=== PATIENT | male | born 1965 | race Caucasian/White ===

== ENCOUNTER → 2018-07-13 14:45 | Outpatient (CLI) | payer MEDICARE, MEDICAID, SELFPAY ==
--- NOTE | 2018-07-13 14:46 | CA_ITS ---
PROCEDURE: 2-D M-mode and color Doppler study INDICATIONS FOR THE TEST: Chest pain COPDX Heart Murmur Tobacco SmokingX Palpitations Fatigue Syncope Edema HypertensionXDiabetes MellitusX Rheumatic Fever SOB AUGUSTIN Obesity HyperlipidemiaX Family History HD Additional History CM,CAD PATIENT INFORMATION HEIGHT: 70 WEIGHT:148 GENDER: Male B/P:143/85 2-D/M-MODE INTERPRETATION: 2-D MEASUREMENTS OBSERVED VALUES IN CMS Right Ventricular Dimension (RVDd) 2.4 Interventricular Septum (Thickness)(IVsd) .8 Left Ventricular Internal Dimensions(LVIDd) 5.4 Left Ventricular Posterior Wall (Thickness)(LVPWd) 1.0 Aortic Root 3.3 Aortic Cusp Separation 1.9 Left Atrial Dimensions (LAD) 2.5 2D 1. Left atrium is mildly enlarged, left ventricle is normal size, left ventricle wall thickness is upper limit of normal, visually estimated ejection fraction 50% with no regional wall motion abnormality. 2. The right atrium and right ventricle are relatively normal size and function. 3. The aortic valve is minimally thickened and fibrosed. 4. The mitral and tricuspid valvular grossly normal. 5. The pulmonic valve is poorly visualized. 6. No significant pericardial effusion noted. DOPPLER INTERROGATION: Doppler interrogation of the aortic, mitral and tricuspid valvular presence of mild mitral and tricuspid regurgitation, tricuspid regurgitation jet velocity is inadequate for calculation of the right ventricular systolic pressure, grade 1 diastolic dysfunction seen without tissue Doppler evidence of raised left atrial pressure. CONCLUSION: 1. Mildly enlarged left atrium, normal left ventricular size, visually estimated ejection fraction 50% with no regional wall motion abnormality, grade 1 diastolic dysfunction seen without tissue Doppler evidence of raised left atrial pressure. 2. Mild mitral and tricuspid regurgitation 3. No significant pericardial effusion noted.
== END ==
PROVIDERS: PCP Internal Medicine Adolescent Medicine; Visit Provider Internal Medicine
DX: I25.10 Atherosclerotic heart disease of native coronary artery without angina pectoris (principal)
CPT/HCPCS: 93306

== ENCOUNTER → 2019-02-26 07:30 | Outpatient (CLI) | payer MEDICARE, MEDICAID, SELFPAY ==
--- NOTE | 2019-02-26 07:33 | CT_ITS ---
CT lung screening EXAM: CT LUNG LOW DOSE WO CONTRAST HISTORY: 40 pack-year smoking history, asymptomatic for lung cancer ITS.REASON: CURRENT TOBACCO USE ORDERING PHYSICIAN: Aaron Elizabeth MD PATIENT AGE: 53 years COMPARISON: None TECHNIQUE: The exam was performed on a GE Light Speed [address] scanner using 2.90 mGy CTDI. A low dose helical CT CHEST was performed on a multi-detector scanner. All CT scans at the facility use one or more dose reduction, viz: automated exposure control, ma/kV adjustment per patient size (including targeted exams where dose is matched to indication, i.e. head), or iterative reconstruction technique. The LDCT was performed in a facility that meets the criteria for the screening program. Data regarding this exam was submitted to ACR which is an approved registry. The order for this exam indicates that it came as a result of a lung cancer screening counseling shard decision-making visit that included all the elements required of such a visit including smoking cessation. The radiologist interpreting this exam meets the CMS criteria for the LDCT lung cancer screening program. The exam is reported using the Lung-RADS classification scale and reported to the ACR registry. NOTE: This study was performed for the specific purposes of lung cancer screening and is not an alternative to diagnostic chest CT. RADIATION DOSE: CTDI vol(CT dose Index-volume) = 2.90mG DLP (Dose Length Product) = 103.42 mGcm FINDINGS: Coronary artery calcifications/stent noted. Evidence of old granulomatous disease. Calcified granuloma right middle lobe IMPRESSION: 1. Lung RADS Category: 2, benign 2. Other findings: No other pertinent findings evident RECOMMENDATIONS: 12 month LDCT follow-up
== END ==
PROVIDERS: PCP Internal Medicine Adolescent Medicine; Visit Provider Internal Medicine Adolescent Medicine
DX: Z12.2 Encounter for screening for malignant neoplasm of respiratory organs (principal); Z87.891 Personal history of nicotine dependence

== ENCOUNTER → 2019-09-17 12:49 | Outpatient (CLI) | payer MEDICARE, MEDICAID, SELFPAY ==
--- NOTE | 2019-09-17 12:54 | MR_ITS ---
PROCEDURE: MR LUMBAR SPINE WO CON CLINICAL INDICATION: ACUTE RT SIDED LBP COMPARISON: [facility] MRI-BRAIN W/WO from 04/07/2016 TECHNIQUE: Standard multiplanar multiecho sequences are performed without contrast. 3-D MIP and myelographic images are also rendered and reviewed FINDINGS: There is no acute fracture. There is mild dextroscoliosis apex at L 3. There is 1-2 millimeters anterior subluxation of L4 on L5 and 2 millimeters anterior subluxation L5 on S1. Desiccation of all lumbar intervertebral discs is noted. There is particular loss of L2-3 disc space height with associated discogenic endplate disease. New malignant bone marrow signal is apparent. At L1-2 there is disc bulge eccentric to the right of midline and there is mild bilateral ligamentum flavum and facet hypertrophy. There is right foraminal stenosis and impingement of the right L1 nerve root sleeve should be considered clinically. At L2-3 there is disc osteophyte osteophyte complex with ligamentum flavum and facet hypertrophy with bilateral neural foraminal stenoses left greater than right and central canal stenosis. At L3-4 there is broad-based disc bulge with a left central-paracentral disc herniation with inferior migration. This causes extradural mass effect on the thecal sac with central spinal canal stenosis. There is associated ligamentum flavum and hypertrophic facet disease with bilateral foraminal stenoses left greater than right. At L4-5 there is broad-based disc bulge with a right central disc herniation with bilateral hypertrophic facet disease. Fluid is seen within the facet joints left greater than right. There is mild bilateral foraminal stenosis but no central canal stenosis. At L5-S1 there is broad-based disc bulge which is eccentric to the right neural foramen. Hypertrophic facet disease is seen bilaterally. There is foraminal stenosis. Possibility of impingement of the right L5 nerve root sleeve would have to be considered. IMPRESSION: Multilevel degenerative disc and facet disease with greatest neural impingement possibly right foraminal stenosis L1-2 and left foraminal stenosis L2-3 Dictated by: Richard Hernandez 09/17/2019 14:22 Electronically signed by Richard Hernandez in [place] 09/17/2019 14:22
== END ==
PROVIDERS: PCP Internal Medicine Adolescent Medicine; Visit Provider Internal Medicine Adolescent Medicine
DX: M54.41 Lumbago with sciatica, right side (principal)
CPT/HCPCS: 72148; 76376

== ENCOUNTER 2020-01-07 13:08 | Emergency (ER) | payer MEDICARE, MEDICAID, SELFPAY ==
[2020-01-07 13:23] VITALS: BP 101/77; PULSE 64; RESP 16; TEMP 36.6; O2SAT 99
--- NOTE | 2020-01-07 13:46 | HMH.EDUTC ---
[facility] [place] Clinical Impression: Infected skin tear Disposition: Home, Self-Care Condition on Discharge: Good Instructions: Minor Wounds (Alternative Therapy), DI for Abrasion, DI for Wound Infection, Cephalexin, Skin Wound Additional Instructions: Watch area for worsening of signs of infection and follow up immediately if any red streaks etc *Keep area clean and dry *Take medication as prescribed *FOllow up with family doctor if no improvement or any worsening of symptoms *Do not put rings back on until wounds healed, swelling decreased and no further signs of infection Wounds like this can take a little bit to heal Straight to ER if any life threatening symptoms Prescriptions: cephALEXin [Keflex 500mg Cap] 500 mg PO Q6H 7 Days #28 cap Transmission Status: Received by [id number] Referrals: Aaron Elizabeth MD [Primary Care Provider] - As needed Time of Disposition: 13:59 Medical Decision Making - Ravi Inquiry Pt receiving controlled substance: No Ravi was queried for this patient: No Vital Signs: 01/07/20 13:23 Temperature 97.8 F Temperature Source Oral Pulse Rate [Right Brachial] 64 Respiratory Rate 16 Blood Pressure [Right Arm] 101/77 L Blood Pressure Mean [Right Arm] 85 Blood Pressure Source [Right Arm] Automatic Cuff Blood Pressure Position [Right Arm] Sitting 02 Sat by Pulse Oximetry 99 Oxygen Delivery Method Room Air Medical Decision Narrative: wound area cleaned well no active bleeding at this time and soft bandage placed patient educated to keep wound area clean and dry and follow up with family doctor if no improvement redness noted an wound area appeared like it was infected Patient tolerated well Patient ring on right ring finger had to be removed with ring cutter patient agreed fingers swollen and ring tight on finger [facility] [place] - General Stated complaint: AO [id number] Right hand injury Time Seen by Provider: 01/07/20 13:46 Mode of Arrival: Ambulatory Source of Information: Patient Limitations: No Limitations Description of Symptoms (Recalled from Triage Doc. by RN): Pt fell and has skin tear on top of his right hand. injured it on tuesday HEENT Symptoms (Recalled from RN notes): No Resp Symptoms (Recalled from RN notes): No Skin Symptoms (Recalled from RN notes): Yes (skin tear to the right hand) MS Symptoms (Recalled from RN notes): No Functional Status (Recalled from RN notes): na - History of Present Illness Provider Complaint: Patient state that he bumped his hand on Tuesday and caused large skin tear to top of his hand States that ever since he has had some redness and swelling along with drainage from the hand States that earlier it started bleeding and oozing so he came in to have it checked State that he has been cleaning it and applying neosporin but when he takes the bandage off the skin slips and it hurts and causes bleeding to start again - Related Data Home Medications Medication Instructions Recorded Confirmed insulin glargine 100 unit/mL (3 25 unit SUB-Q QHS ml 01/02/18 01/07/20 mL) subcutaneous pen levothyroxine 175 mcg tablet 175 mcg PO DAILY tab 01/02/18 01/07/20 lisinopril 5 mg tablet 5 mg PO DAILY tab 01/02/18 01/07/20 lovastatin 20 mg tablet 20 mg PO QHS 01/02/18 01/07/20 metformin 500 mg tablet 500 mg PO BID 01/02/18 01/07/20 Insulin Regular, Human [Novolin R] 20 - 25 units SQ HS 03/21/18 01/07/20 aspirin 81 mg tablet,delayed 81 mg PO DAILY 04/24/18 01/07/20 release tramadol 50 mg tablet 50 mg PO QID tab 07/10/18 01/07/20 Ralph [Ralph, Esme] 1 each MISCELLANEOUS DIRECTED 01/07/20 01/07/20 Previous Rx's Medication Instructions Recorded cephALEXin [Keflex 500mg Cap] 500 mg PO Q6H 7 Days #28 cap 01/07/20 Allergies Allergy/AdvReac Type Severity Reaction Status Date / Time No Known Allergies Allergy Verified 01/07/20 13:28 - Worker's Comp Is this a Worker's Comp case?: No [facility] History - Hepatiti
[2020-01-07 14:22] VITALS: BP 101/77; PULSE 64; RESP 16; TEMP 36.6; O2SAT 98
== END 2020-01-07 14:23 | disposition home or self-care (01) ==
PROVIDERS: Emergency Provider Nurse Practitioner; PCP Internal Medicine Adolescent Medicine
DX: L03.113 Cellulitis of right upper limb (principal); I10 Essential (primary) hypertension; I25.10 Atherosclerotic heart disease of native coronary artery without angina pectoris; E03.9 Hypothyroidism, unspecified; E78.5 Hyperlipidemia, unspecified; F17.210 Nicotine dependence, cigarettes, uncomplicated; E11.9 Type 2 diabetes mellitus without complications; Z79.4 Long term (current) use of insulin; Z79.84 Long term (current) use of oral hypoglycemic drugs; Z79.899 Other long term (current) drug therapy
CPT/HCPCS: G0463; 99201

== ENCOUNTER → 2020-01-28 07:59 | Outpatient (CLI) | payer MEDICARE, MEDICAID, SELFPAY ==
[2020-01-28 09:45] LABS: Coronavirus 19 IgG Antibody Negative (Negative); Coronavirus 19 IgM Antibody Negative (Negative)
== END ==
PROVIDERS: Visit Provider Surgery
DX: Z01.818 Encounter for other preprocedural examination (principal); Z12.11 Encounter for screening for malignant neoplasm of colon; Z86.010 Personal history of colon polyps
CPT/HCPCS: 36415; 86328

== ENCOUNTER 2020-01-29 06:05 | Day surgery (SDC) | payer MEDICARE, MEDICAID, SELFPAY ==
--- NOTE | 2020-01-25 15:01 | SUR.PREOP ---
01/25/2020--PHONE CALL MADE TO PATIENT. PATIENT UNDERSTANDS THAT LAB WORK AND COVID TESTING NEEDS TO BE COMPLETED BEFORE 12PM. PATIENT UNDERSTANDS IF LAB WORK AND COVID-19 TESTS ARE NOT COMPLETED BY 12PM ON THAT DATE, THE SURGERY SCHEDULED WILL BE CANCELLED AND RESCHEDULED FOR ANOTHER TIME.
[2020-01-28 14:56] VITALS: BMI 20.2
[2020-01-29] VITALS (7 sets, daily range): BP systolic 106–142; BP diastolic 68–93; PULSE 59–75; RESP 18; TEMP 36.1–36.2; O2SAT 94–99
[2020-01-29 06:40] LABS: POC Glucose,Bedside 268 (70-110)
--- NOTE | 2020-01-29 06:55 | SUR.PREOP ---
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 NO NEW ORDERS GIVEN
--- NOTE | 2020-01-29 07:14 | HMH.ANESCL ---
[facility] Anesthesia Checklist - Structural Data Admitted From: Home Planned Operative Procedure/s: colonoscopy Consent for Planned Operative Procedure(s) Verified: Yes - Additional verifications Anesthesia Reactions: No Hx Blood Transfusions: No Blood Transfusion Reaction: No - Airway Assessment C-Spine Mobility Assessed: Yes TMJ Mobility Assessed: Yes Dentition: Poor Dentition - Neurological Assessment Level of Consciousness: Awake, Alert, Appropriate - Anesthesia Plan Anesthesia Risk discussed: Yes ASA Class: II Anesthesia Type: MAC [facility] History I have reviewed the patient's past medical history: Yes Medical History: Reports:: Cancer (thyroid cancer), Coronary Artery Disease, Diabetes Mellitus Type 2, Hyperlipidemia, Hypertension Denies:: Diabetes Mellitus Type 1, Internal Pacemaker, Lung Disease, MRSA, Seizures *Have you ever received a pneumonia vaccine?: Yes *Have you received a flu vaccine this season?: Yes Other Medical History: Reports: Arthritis, Hypothyroidism, Other. Denies: Blood Transfusion Reaction Anesthesia experience/problems:: none Other Surgeries: Yes: Cardiac Catheterization, Colonoscopy, Coronary Stent, Hernia Repair, Thyroidectomy, Other. No: Pacemaker Amputation: No Fractures: No - *Social History Educational Level: Attended High School Smoking Status: Current every day smoker Tobacco Type: cigarettes # Packs/Day (cigarettes): 2 Alcohol Intake: never Alcohol Intake Frequency:: other Substance Use Type: denies use *Occupational Status:: retired, disabled Housing: apartment Household Members: spouse *Travel in the last 8 weeks: None Family Hx:: Cancer, Diabetes, Heart Attack, Hyperlipidemia, Hypertension, Thyroid Disorder
--- NOTE | 2020-01-29 08:15 | HMH.SCOPE ---
- Procedure: Date: 01/29/20 Procedure Performed:: Total colonoscopy to ileocecal valve with polypectomy by cold snare Indications:: Patient presents for follow-up colonoscopy. His primary care provider is Dr. Aaron Elizabeth. He is somewhat of a poor historian with multiple medical comorbidities. I had performed initial screening colonoscopy on 03/21/2018. He had extremely poor preparation and only flexible sigmoidoscopy was able to be performed. He underwent additional bowel preparation and colonoscopy was performed the following day at which point the patient presented for his procedure drinking coffee. Once again, despite 2 days of bowel prep he had poor preparation but did have numerous polyps removed including 7 tubular adenomas. Due to the suboptimal bowel prep and numerous polyps I had planned for follow-up colonoscopy in 6 months which was attempted on 10/24/2018. Once again he had very poor preparation and only sigmoidoscopy was able to be performed. He underwent additional bowel prep and colonoscopy was performed on 10/25/2018 which once again revealed poor prep but colonoscopy was able to be completed with at least one tubular adenoma. Was made for follow-up colonoscopy in 1 year with aggressive bowel preparation. Performing Provider:: Rashaad Sprague MD Referring Provider:: Aaron Elizabeth MD Sedation:: Propofol Procedure:: Patient was taken to endoscopy procedure room. He was positioned in lateral decubitus position. Adequate intravenous sedation was achieved. Variable stiffness Olympus colonoscope was inserted via the anus and advanced to the cecum without appreciable difficulty. Ileocecal valve and appendiceal orifice were clearly identified. However, he had poor colonic preparation with a large amount of particulate liquid stool filling the colon. Aggressive irrigation kneeing and thorough suctioning was performed which resulted in fair visualization. The colonoscope was able to be advanced briefly into the terminal ileum which appeared grossly normal. Colonoscope was withdrawn through the colon with careful surveillance as much as could be performed using aggressive irrigation and suctioning. In the distal transverse colon there appeared to be possible subtle early polyp which was removed with cold snare. In the distal rectum there were a couple of polyps, possibly hyperplastic, removed with cold cutting snare. Retroflexion revealed nonpathologic internal hemorrhoids. Colonoscope was withdrawn. Findings:: Poor colonic preparation Recommendations:: Likely repeat colonoscopy 2 years given history of adenomatous polyps and repeated poor colonic preparation Complications:: None immediately apparent Estimated blood obtained (mL): 2
== END 2020-01-29 08:50 | disposition home or self-care (01) ==
PROVIDERS: PCP Internal Medicine Adolescent Medicine; Visit Provider Surgery
PROC: 0DJD8ZZ Inspection of Lower Intestinal Tract, Via Natural or Artificial Opening Endoscopic (ICD-10-PCS; principal; 2020-01-29 07:30)
DX: Z12.11 Encounter for screening for malignant neoplasm of colon (principal); K63.5 Polyp of colon; Z86.010 Personal history of colon polyps; Z79.4 Long term (current) use of insulin; Z79.899 Other long term (current) drug therapy; E11.9 Type 2 diabetes mellitus without complications; Z85.9 Personal history of malignant neoplasm, unspecified; Z72.0 Tobacco use
CPT/HCPCS: 45385; 82962; 88305

== ENCOUNTER 2020-06-03 08:30 | Outpatient (RCR) | payer MEDICARE, SELFPAY ==
--- NOTE | 2020-05-28 10:22 | HMH.PTOPEV ---
PT Outpatient Evaluation Rehab PT Outpatient Evaluation Start: 05/28/20 08:53 Freq: Status: Active Protocol: Document 05/28/20 08:53 IMANGORAN (Rec: 05/28/20 10:22 RAVI [id number]) Electronically Signed By Efraín Robin, PT 05/28/20 08:53 Outpatient Therapy Subjective History Subjective History This is the inital evaluation for Maximino Mcclain, a 55 y/o male referred to PT for B LE weakness. Pt. reported that he feels weak and that he would like to get the strength back in his legs. Pt . lives at home with his . Pt. also reported that he has some dizziness and lightheadedness at times, mainly after standing up. The pt. also reported that he has a couple falls in the last 6 months and can only walk or stand for 3-4 minutes. Pt reports long hx of diabetes, and c/o pinched nerves in back that has caused neuropathy in BLE. Eval performed by SHAUN Webb Chief Complaint Pain,Gives out/Unstable, Weakness Symptom Type Sharp Symptoms Relieved By Rest/Positioning Symptoms Aggravated By Standing,Physical Activity, Walking Prior Functional Limitations Standing,Walking,Balance Current Functional Limitations Standing,Walking,Stairs, Balance,Bending/Stooping Symptom Description Intermittent Pain scale - at its best (0-10) 0 Pain scale - at its worst (0-10) 10 Hip/Knee Eval MMT left Hip Flexion Strength Grade 3- Fair- Knee Extension Strength Grade 4 Good right Hip Flexion Strength Grade 3 Fair Knee Extension Strength Grade 4 Good DTR bilateral Rt Patellar 1+ Lt Patellar 1+ Rt Ankle 1+ Lt Ankle 1+ Ankle/Foot Eval MMT left Ankle Dorsiflexion Strength Grade 4- Good- right Ankle Dorsiflexion Strength Grade 3 Fair Balance Eval Subjective Hx of Complaint Comment Pt. complains of weakness in his B LE Chief Complaint Did you feel dizzy, unsteady or faint? Yes: Upon standing Current Functional Limitations Comment
== END 2020-06-03 08:35 | disposition home or self-care (01) ==
LOC: PT 08:30
PROVIDERS: PCP Internal Medicine Adolescent Medicine; Visit Provider Internal Medicine Adolescent Medicine
DX: R29.898 Other symptoms and signs involving the musculoskeletal system (principal); R26.89 Other abnormalities of gait and mobility
CPT/HCPCS: 97110; 97163

== ENCOUNTER → 2020-06-09 06:55 | Outpatient (CLI) | payer MEDICARE, SELFPAY ==
[2020-06-09 07:16] LABS: Basophils # 0.1 K/mm3 (0-0.2); Basophils % 1.2 % (0.1-2.0); Eosinophils # 0.2 K/mm3 (0.0-0.4); Eosinophils % 2.1 % (0.1-12.0); Hematocrit 46.9 % (42.0-52.0); Hemoglobin 14.5 g/dL (14.1-18.0); Lymphocytes # 3.3 K/mm3 (0.7-4.5); Lymphocytes % 33.4 % (10-50); Mean Corpuscular Hemoglobin 29.2 pg (27.0-31.2); Mean Corpuscular Volume 94.4 fl (80-94); Mean Platelet Volume 7.7 fl (7.4-10.4); Monocytes # 0.9 K/mm3 (0.1-1.0); Monocytes % 9.3 % (1.7-9.3); Neutrophils # 5.4 K/mm3 (1.8-7.8); Platelet Count 318 K/mm3 (142-424); Red Blood Count 4.97 M/mm3 (4.60-6.20); White Blood Count 9.9 K/mm3 (4.8-10.8)
--- NOTE | 2020-06-09 07:18 | ECG_ITS ---
APPROVED REPORT Exam: Resting ECG HR:76 bpm ECG Measurements Heart Rate 76 AXES NH 130 P 68 QRSd 98 QRS -60 QT 376 T 7 QTc 423 Conclusion Normal sinus rhythm Left anterior fascicular block Minimal voltage criteria for LVH, may be normal variant Abnormal ECG Electronically signed by : Gen Haynes, 06/09/2020 09:22:29
[2020-06-09 07:25] LABS: Chloride 101 mmol/L (98-107); Potassium 5.7 mmoL/L (3.5-5.1); Sodium 136 mmol/L (136-145)
[2020-06-09 07:28] LABS: Anion Gap 12.7 mEq/L (5-15); Blood Urea Nitrogen 23 mg/dl (9-20); Calcium 9.6 mg/dl (8.4-10.2); Carbon Dioxide 28 mmol/L (22.0-30.0); Estimated Glomerular Filt Rate 53 ml/min (>60); GFR (African American) 64 ML/MIN (>60); Glucose 242 mg/dl (74-100)
[2020-06-09 09:09] LABS: Coronavirus 19 IgG Antibody Negative (Negative); Coronavirus 19 IgM Antibody Negative (Negative)
== END ==
PROVIDERS: Visit Provider Otolaryngology
DX: Z01.89 Encounter for other specified special examinations (principal); K13.0 Diseases of lips; L98.9 Disorder of the skin and subcutaneous tissue, unspecified
CPT/HCPCS: 36415; 80048; 85025; 86328; 93005

== ENCOUNTER 2020-06-10 06:09 | Day surgery (SDC) | payer MEDICARE, SELFPAY ==
[2020-06-10 06:25] VITALS: BP 135/83; PULSE 87; RESP 18; TEMP 36.7; O2SAT 99
[2020-06-10 06:44] LABS: POC Glucose,Bedside 183 (70-110)
--- NOTE | 2020-06-10 06:45 | P.PN_ITS ---
[facility] Anesthesia Checklist - Patient Identification Patient Identification: Arm Band, Verbal (Name & ) - Structural Data Admitted From: Home Planned Operative Procedure/s: ex lession Consent for Planned Operative Procedure(s) Verified: Yes Verified Documents: History and Physical - NPO Status Verified Time NPO: 00:00 - Additional verifications Patient : No Anesthesia Reactions: No Hx Blood Transfusions: No Blood Transfusion Reaction: No Cephalosporin Allergy: No Previous Colonoscopy: No - Cardiovascular Assessment Heart Sounds: S1 & S2 Pulse Strength: Baseline Pulse Rhythm: Regular Peripheral Edema: No - Airway Assessment C-Spine Mobility Assessed: Yes TMJ Mobility Assessed: Yes Dentition: Poor Dentition - Neurological Assessment Level of Consciousness: Awake, Alert, Appropriate Hx Seizures: No Numbness or tingling in extremities: No - Anesthesia Plan Anesthesia Risk discussed: Yes Anesthesia Plan: Verified ASA Class: III Anesthesia Type: MAC [facility] History I have reviewed the patient's past medical history: Yes Medical History: Reports:: Cancer (neck, thyroid), Coronary Artery Disease, Diabetes Mellitus Type 2, Hyperlipidemia, Hypertension Denies:: Diabetes Mellitus Type 1, Internal Pacemaker, Lung Disease, MRSA, Seizures *Have you ever received a pneumonia vaccine?: Yes *Have you received a flu vaccine this season?: Yes Other Medical History: Reports: Arthritis, Hypothyroidism, Other. Denies: Blood Transfusion Reaction Anesthesia experience/problems:: none Other Surgeries: Yes: Cardiac Catheterization, Colonoscopy, Coronary Stent, Hernia Repair, Thyroidectomy, Other. No: Pacemaker Amputation: No Fractures: No - *Social History Smoking Status: Current every day smoker Tobacco Type: cigarettes # Packs/Day (cigarettes): 1 Alcohol Intake: never Alcohol Intake Frequency:: other Substance Use Type: denies use *Occupational Status:: retired, disabled Housing: house Household Members: spouse *Travel in the last 8 weeks: None Family Hx:: Cancer, Diabetes, Heart Attack, Hyperlipidemia, Hypertension, Thyroid Disorder
[2020-06-10 08:45] VITALS: BP 138/93; PULSE 91; RESP 18; TEMP 36.4; O2SAT 97
--- NOTE | 2020-06-10 08:52 | P.OP_ITS ---
Date of procedure: 06/10/20 Pre-op Diagnosis:: 1. Lesion left side of lower lip 2.5 cm 2. 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 Excision of lesion lower lip 2.5 cm with tissue rearrangement geometric repair 2. Excision of neoplasm chin 2.5 cm with tissue rearrangement geometric plastic repair Surgeon:: Naldo Portillo MD CLINICAL DOCUMENTATION IMPROVEMENT SPECIALIST:: Keshawn Zaragoza Anesthesia: MAC Estimated blood loss (mL): 5 Operative findings:: same Operative note:: The face was prepped and draped the perilesional areas were infiltrated with a total of 5 cc of 2% lidocaine with epinephrine the eyes were protected with Steri-Strips. The lesion on the lower lip left side was marked out it measured 2.5 cm. The yenny out was incised and a cystic lesion was identified in the subcutaneous layer and carefully mobilized with tenotomy scissors. And removed in entirety. Bleeding was stopped with bipolar cautery Surgicel snow was placed in the defect and anterior and inferior incision was made and a tissue rearrangement geometric plastic repair was done with 4-0 nylon sutures Dermabond dressing was applied. The lesion on the chin was marked out the yenny out was incised and the lesion was excised in entirety and submitted. Bleeding was stopped with bipolar cautery. Lateral and medial incisions were made and a tissue rearrangement geometric plastic repair was done after Surgicel snow was placed in the defect using 4-0 nylon sutures a Dermabond dressing was applied and blood loss for all of the procedure was less than 5 cc and stopped completely. The patient tolerated the procedure well and was sent to recovery in good general condition. Condition: stable Disposition: PACU Complications:: none
[2020-06-10 09:00] VITALS: BP 143/77; PULSE 85; RESP 18; O2SAT 99
[2020-06-10 09:15] VITALS: BP 125/84; PULSE 85; RESP 18; O2SAT 98
== END 2020-06-10 09:15 | disposition home or self-care (01) ==
LOC: OR 06:10
PROVIDERS: PCP Internal Medicine Adolescent Medicine; Visit Provider Otolaryngology
PROC: (CPT 14040; principal; 2020-06-10 07:30)
DX: K13.0 Diseases of lips; D22.39 Melanocytic nevi of other parts of face; Z85.850 Personal history of malignant neoplasm of thyroid; Z85.89 Personal history of malignant neoplasm of other organs and systems; I25.10 Atherosclerotic heart disease of native coronary artery without angina pectoris; E11.9 Type 2 diabetes mellitus without complications; E78.5 Hyperlipidemia, unspecified; I10 Essential (primary) hypertension; M19.90 Unspecified osteoarthritis, unspecified site; Z72.0 Tobacco use; J44.9 Chronic obstructive pulmonary disease, unspecified; E03.9 Hypothyroidism, unspecified
CPT/HCPCS: 14040; 14060; 82962; 88304; 88305; 96374

== ENCOUNTER → 2020-12-26 07:15 | Outpatient (CLI) | payer MEDICARE, SELFPAY ==
[2020-12-26 08:37] LABS: Basophils # 0.2 K/mm3 (0-0.2); Basophils % 2.1 % (0.1-2.0); Eosinophils # 0.4 K/mm3 (0.0-0.4); Eosinophils % 4.7 % (0.1-12.0); Hematocrit 42.8 % (42.0-52.0); Hemoglobin 13.5 g/dL (14.1-18.0); Lymphocytes # 2.3 K/mm3 (0.7-4.5); Mean Corpuscular HGB Conc 31.6 g/dL (31.8-35.4); Mean Corpuscular Hemoglobin 28.6 pg (27.0-31.2); Mean Corpuscular Volume 90.6 fl (80-94); Monocytes # 0.8 K/mm3 (0.1-1.0); Monocytes % 10.4 % (1.7-9.3); Neutrophils # 3.9 K/mm3 (1.8-7.8); Neutrophils % 51.9 % (37.0-80.0); Platelet Count 335 K/mm3 (142-424); Red Blood Count 4.72 M/mm3 (4.60-6.20); Red Cell Distribution Width 15.3 % (11.5-17.5); White Blood Count 7.5 K/mm3 (4.8-10.8)
[2020-12-26 08:51] LABS: Hemoglobin A1C 11.6 % (4.0-6.0)
[2020-12-26 08:59] LABS: Chloride 100 mmol/L (98-107); Sodium 141 mmol/L (136-145)
[2020-12-26 09:01] LABS: Blood Urea Nitrogen 24 mg/dl (9-20); Estimated Glomerular Filt Rate 49 ml/min (>60); GFR (African American) 59 ML/MIN (>60)
[2020-12-26 09:02] LABS: Alanine Aminotransferase 16 U/L (12-78); Albumin Level 4.6 g/dl (3.5-5.0); Albumin/Globulin Ratio 1.6 (1.1-1.8); Alkaline Phosphatase 121 U/L (38-126); Aspartate Amino Transferase 32 U/L (17-59); Bilirubin,Total 0.5 mg/dl (0.2-1.3); Calcium 9.7 mg/dl (8.4-10.2); Carbon Dioxide 30 mmol/L (22.0-30.0); Chol/HDL Ratio 5.7 (1-3.5); Cholesterol 287 mg/dl (140-200); Globulin 2.8 g/dL (1.3-3.2); Glucose 136 mg/dl (74-100); HDL Cholesterol 50 mg/dl (40-60); Total Protein,Serum 7.4 g/dl (6.3-8.2); Triglycerides 204 mg/dl (30-150); VLDL Cholesterol 41 mg/dL (0-40)
[2020-12-26 09:13] LABS: Direct LDL Cholesterol 175.93 mg/dL (100-129)
== END ==
PROVIDERS: Visit Provider Internal Medicine Adolescent Medicine
DX: E11.9 Type 2 diabetes mellitus without complications (principal); E03.9 Hypothyroidism, unspecified; Z79.4 Long term (current) use of insulin
CPT/HCPCS: 36415; 80053; 80061; 83036; 84443; 85025

== ENCOUNTER 2021-04-23 14:40 | Emergency (ER) | payer MEDICARE, SELFPAY ==
[2021-04-23 14:40] VITALS: BP 153/89; PULSE 87; RESP 18; TEMP 36.9; O2SAT 98; BMI 19.2
--- NOTE | 2021-04-23 14:41 | HMH.EDGENADL ---
ED Disposition Condition on Discharge: Good - Critical Care Critical Care Time: No <Fredy Marks - Last Filed: 04/23/21 20:40> <Richard Noland - Last Filed: 04/23/21 21:39> Clinical Impression: Leg weakness, bilateral, Lumbar foraminal stenosis Lumbar stenosis Qualifiers: Neurogenic claudication status: without neurogenic claudication Qualified Code(s): M48.061 - Spinal stenosis, lumbar region without neurogenic claudication Disposition: Left Against Medical Advice Instructions: DI for Muscle Weakness Additional Instructions: call pcp in am Referrals: Aaron Elizabeth MD [Primary Care Provider] - Attestation: On 04/23/21, the high probability of a clinically significant, sudden or life threatening deterioration of the following system(s) required my full and direct attention, intervention and personal management. The time I documented below is in addition to time spent performing reported procedures but includes the following listed in this critical care notation. Medical Decision Making - Medical Records Medical records reviewed: Yes: I reviewed the patient's medical records. - Ravi Inquiry Pt receiving controlled substance: No - Lab Data Lab results reviewed: Yes: I reviewed the patient's lab results. Result diagrams: 04/23/21 15:30 04/23/21 15:30 - CT Data CT Scan: Head Time Received: 14:[address] Reviewed: Yes: I have reviewed the patient's CT results Preliminary Findings: Normal/NAD - ECG Data Tracing #1 I reviewed this ECG and interpreted as documented below: ECG initial impression date: 04/23/21 ECG initial impression time: 15:45 <Fredy Marks - Last Filed: 04/23/21 20:40> - Lab Data Result diagrams: 04/23/21 15:30 04/23/21 15:30 - Radiology Data #1 Image(s): Other (mri spine - see reports ) - Physician Consults Physician Consulted: ozzie Reason -: Pt condition <Richard Noland - Last Filed: 04/23/21 21:39> Vital Signs: 04/23/21 14:40 Temperature 98.4 F Temperature Source Oral Pulse Rate [Right] 87 Respiratory Rate 18 Blood Pressure [Right Arm] 153/89 H Blood Pressure Mean [Right Arm] 110 02 Sat by Pulse Oximetry 98 Oxygen Delivery Method Room Air - Lab Data Lab Results 04/23/21 15:30: WBC 7.7, RBC 4.45 L, Hgb 13.0 L, Hct 40.5 L, MCV 91.2, MCH 29.2, MCHC 32.1, RDW 14.4, Plt Count 461 H, MPV 8.1, Neut % (Auto) 61.7, Lymph % (Auto) 29.2, [place] % (Auto) 6.2, Eos % (Auto) 2.0, Baso % (Auto) 0.9, Neut # (Auto) 4.8, Lymph # (Auto) 2.3, [place] # (Auto) 0.5, Eos # (Auto) 0.2, Baso # (Auto) 0.1 04/23/21 15:30: PT 10.2, INR 0.85 L 04/23/21 15:30: Sodium 136, Potassium 5.1, Chloride 99, Carbon Dioxide 27, Anion Gap 15.1 H, BUN 30 H, Creatinine 1.20, Estimated Creat Clear 60, Estimated GFR 63, Est GFR ( Amer) 76, Glucose 217 H, Calcium 8.8, Total Bilirubin 0.3, AST 26, ALT 11 L, Alkaline Phosphatase 100, Total Protein 7.1, Albumin 3.9, Globulin 3.2, Albumin/Globulin Ratio 1.2 04/23/21 15:30: ESR 71 H 04/23/21 15:30: C-Reactive Protein 0.4 04/23/21 15:30: Procalcitonin 0.054 Orders (Tests/Meds): ED MEDICATIONS Discontinued Medications Generic Name Dose Route Start Last Admin Trade Name Freq PRN Reason Stop Dose Admin Methylprednisolone Sodium Succinate 125 mg 04/23/21 21:32 Methylprednisolone Sod Succ 125mg Vial IV 04/23/21 21:33 ONCE ONE ORDERS Category Date Time Status Rapid PCR Covid and Flu A/B Stat Lab 04/23/21 21:32 Ordered UA [Urinalysis and Microscopic] Stat Lab 04/23/21 15:10 Ordered - ECG Data Tracing #1 Normal sinus rhythm with right bundle branch block, no ST elevation or depression, normal intervals. (Fredy Marks) Medical Decision Narrative: 55yo M evaluated for sudden onset bilateral lower extremity weakness. Patient in no acute distress on initial evaluation and his physical exam is unremarkable except for the fact he has no resistance against gravity to bilateral lower extremities.
--- NOTE | 2021-04-23 15:10 | CT_ITS ---
PROCEDURE: CT HEAD/BRAIN WO CON CLINICAL INDICATION: B/L LE weakness, sudden COMPARISON: CT HDWO CT HEAD W/O CONTRAST from 04/07/2016 TECHNIQUE: Axial images obtained. All CT scans at the facility use one or more dose reduction, viz: automated exposure control, ma/kV adjustment per patient size (including targeted exams where dose is matched to indication, i.e. head), or iterative reconstruction technique. FINDINGS: No midline shift, mass effect, intracranial hemorrhage, hydrocephalus, or extra-axial fluid collection is evident. The calvarium has an unremarkable appearance. No mastoid effusion. Minimal mucosal thickening noted of the ethmoid sinuses. No sinus air-fluid level evident. IMPRESSION: No acute intracranial finding Dictated by: Etienne Tinajero MD 04/23/2021 15:39 Etienne Tinajero MD in [place] 04/23/2021 15:39
--- NOTE | 2021-04-23 15:21 | PC.NURSE ---
PT TO CT SCAN VIA WHEELCHAIRS.
--- NOTE | 2021-04-23 15:39 | ECG_ITS ---
APPROVED REPORT Exam: Resting ECG HR:83 bpm ECG Measurements Heart Rate 83 AXES IN 140 P 79 QRSd 112 QRS -66 QT 386 T 32 QTc 453 Conclusion Normal sinus rhythm Incomplete right bundle branch block Left anterior fascicular block Moderate voltage criteria for LVH Late r wave progression Abnormal ECG Electronically signed by : Aaron Elizabeth MD 04/24/2021 18:55:49
--- NOTE | 2021-04-23 15:43 | PC.NURSE ---
URINAL AT BEDSIDE, INFORMED PT OF NEED OF SAMPLE.
[2021-04-23 15:53] LABS: Basophils # 0.1 K/mm3 (0-0.2); Basophils % 0.9 % (0.1-2.0); Eosinophils # 0.2 K/mm3 (0.0-0.4); Hematocrit 40.5 % (42.0-52.0); Lymphocytes # 2.3 K/mm3 (0.7-4.5); Lymphocytes % 29.2 % (10-50); Mean Corpuscular HGB Conc 32.1 g/dL (31.8-35.4); Mean Corpuscular Hemoglobin 29.2 pg (27.0-31.2); Mean Corpuscular Volume 91.2 fl (80-94); Mean Platelet Volume 8.1 fl (7.4-10.4); Monocytes # 0.5 K/mm3 (0.1-1.0); Monocytes % 6.2 % (1.7-9.3); Neutrophils # 4.8 K/mm3 (1.8-7.8); Neutrophils % 61.7 % (37.0-80.0); Platelet Count 461 K/mm3 (142-424); Red Blood Count 4.45 M/mm3 (4.60-6.20); Red Cell Distribution Width 14.4 % (11.5-17.5); White Blood Count 7.7 K/mm3 (4.8-10.8)
[2021-04-23 15:57] LABS: Chloride 99 mmol/L (98-107); Potassium 5.1 mmoL/L (3.5-5.1); Sodium 136 mmol/L (136-145)
[2021-04-23 16:00] LABS: Alanine Aminotransferase 11 U/L (12-78); Albumin Level 3.9 g/dl (3.5-5.0); Albumin/Globulin Ratio 1.2 (1.1-1.8); Alkaline Phosphatase 100 U/L (38-126); Anion Gap 15.1 mEq/L (5-15); Aspartate Amino Transferase 26 U/L (17-59); Bilirubin,Total 0.3 mg/dl (0.2-1.3); Blood Urea Nitrogen 30 mg/dl (9-20); Carbon Dioxide 27 mmol/L (22.0-30.0); Creatinine Clearance Estimated 60 mL/min (50-200); Estimated Glomerular Filt Rate 63 ml/min (>60); GFR (African American) 76 ML/MIN (>60); Globulin 3.2 g/dL (1.3-3.2); Total Protein,Serum 7.1 g/dl (6.3-8.2)
[2021-04-23 16:01] LABS: Calcium 8.8 mg/dl (8.4-10.2); Glucose 217 mg/dl (74-100)
[2021-04-23 16:02] LABS: Prothrombin Time 10.2 seconds (10.1-12.5)
[2021-04-23 16:09] LABS: INR 0.85 (0.9-1.1)
--- NOTE | 2021-04-23 16:15 | PC.NURSE ---
PT STILL UNABLE TO GIVE URINE.
--- NOTE | 2021-04-23 16:42 | MR_ITS ---
PROCEDURE INFORMATION: Exam: MR Thoracic Spine Without Contrast Exam date and time: 04/23/2021 4:42 PM Age: 55 years old Clinical indication: Weakness; Additional info: B/l le weakness TECHNIQUE: Imaging protocol: Multiplanar magnetic resonance images of the thoracic spine without intravenous contrast. COMPARISON: MR LUMBAR SPINE WO CON 09/17/2019 1:06 PM FINDINGS: No axial T2 weighted images through the upper thoracic spine are provided, somewhat limiting evaluation. Subcentimeter cystic lesion in the posterior right hepatic lobe. Dextroscoliosis, centered about L2-L3. Vertebral body heights are maintained. The usual thoracic kyphosis is preserved. T1 marrow signal is within normal limits. No marrow edema. No evidence of acute fracture or dislocation. Osseous degenerative changes. Anterior bridging osteophytes in the midthoracic spine. Multilevel loss of disc height with disc desiccation. Multiple Schmorl's nodes, more numerous in the lower thoracic spine. Mild diffuse disc bulge at T8-9. Minimal/mild bilateral neural foraminal narrowing at T8-9. Mild diffuse disc bulge with left paracentral disc protrusion at T9-10. Mild left neural foraminal narrowing at T9-10. Mild diffuse disc bulge at T10-11. Moderate to severe left neural foraminal narrowing and moderate right at T10-11. Mild diffuse disc bulge at T11-12, left paracentral disc protrusion. Moderate to severe left neural foraminal narrowing and moderate right at T11-12. IMPRESSION: 1. No acute fracture or dislocation. 2. Multilevel degenerative changes of the spine the, greatest at T10-11 and T11-12, as above. 3. No axial T2 weighted images through the upper thoracic spine are provided, somewhat limiting evaluation.
--- NOTE | 2021-04-23 16:42 | MR_ITS ---
PROCEDURE INFORMATION: Exam: MR Cervical Spine Without Contrast Exam date and time: 04/23/2021 4:42 PM Age: 55 years old Clinical indication: Pain; Other: Leg weakness; Additional info: B/l le weakness TECHNIQUE: Imaging protocol: Multiplanar magnetic resonance images of the cervical spine without contrast. COMPARISON: NECKW CT SOFT TISSUE NECK W/CONTRAST 06/30/2014 7:23 AM FINDINGS: Vertebrae: Craniocervical junction and craniocervical ligaments are intact. Vertebral body heights are maintained. T1 marrow signal is within normal limits. No marrow edema. The usual cervical lordosis is preserved. No evidence of acute fracture dislocation. Spinal cord: Normal signal. No cord compression. Discs/Spinal canal/Neural foramina: Degenerative changes. Multilevel disc desiccation.. At C2-C3, there is mild diffuse disc bulge, with small central disc protrusion/posterior disc osteophyte. Effacement of the ventral CSF space.. Mild spinal canal stenosis. No neural foraminal narrowing. At C3-C4, there is diffuse disc bulge, with effacement of the ventral CSF space and indentation on the thecal sac. Uncinate process and facet hypertrophy. Mild to moderate spinal canal stenosis. Mild to moderate right and mild left neural foraminal narrowing. At C4-C5, there is uncinate process and facet hypertrophy with diffuse disc bulge/posterior disc osteophyte. Effacement of the ventral CSF space. Mild spinal canal stenosis. Moderate right neural foraminal narrowing. Mild left neural foraminal narrowing. At C5-C6, there is a mild diffuse disc bulge. Effacement on the ventral CSF space, greater on the right paracentral region. Mild spinal canal stenosis. Mild to moderate right neural foraminal narrowing. No significant left neural foraminal narrowing. At C6-C7 there is no significant spinal canal stenosis or neural foraminal narrowing. Vasculature: Expected flow voids in the vertebral arteries. Soft tissues: IMPRESSION: 1. No acute findings. 2. Multilevel degenerative changes, as above. [id number] spinal canal stenosis at C3-C4. At C4-C5, there is mild spinal canal stenosis and moderate right neural foraminal narrowing.
--- NOTE | 2021-04-23 16:42 | PC.NURSE ---
MRI CALLED FOR SCAN.
--- NOTE | 2021-04-23 17:35 | PC.NURSE ---
PT TO MRI VIA WHEELCHAIR AT THIS TIME.
--- NOTE | 2021-04-23 17:36 | PC.NURSE ---
Pt to MRI
--- NOTE | 2021-04-23 17:54 | MR_ITS ---
PROCEDURE INFORMATION: Exam: MR Lumbar Spine Without Contrast Exam date and time: 04/23/2021 5:54 PM Age: 55 years old Clinical indication: Weakness; Additional info: Pain, weakness bilateral leg weakness TECHNIQUE: Imaging protocol: Multiplanar magnetic resonance images of the lumbar spine without intravenous contrast. COMPARISON: MR LUMBAR SPINE WO CON 09/17/2019 1:06 PM FINDINGS: Limitations: Examination limited by patient motion. This particularly affects the axial series. 3 mm retrolisthesis of of L2 upon L3 and L3 upon L4. 8 mm anterolisthesis of L4 upon L5. The usual lumbar lordosis is otherwise preserved. Dextroscoliosis at L2-L3 is suspected based on the axial images. Modic type 2 degenerative change at L2-L3. T1 marrow signal is otherwise within normal limits. Vertebral body heights are maintained. Multilevel degenerative changes of the spine. Multilevel loss of disc height with disc desiccation. At L1-L2, there is a diffuse disc bulge, greater in the right paracentral region, with facet and ligamentum flavum hypertrophy. Indentation on the ventral and lateral thecal sac, greater on the right. Moderate spinal canal stenosis. Effacement of the right lateral recess, with probable indentation on the descending L2 nerve root. Severe right and moderate to severe left neural foraminal narrowing. At L2-L3, there is severe loss of disc height, with diffuse disc bulge with facet and ligamentum flavum hypertrophy. Indentation on the ventral and right posterolateral thecal sac. Moderate to severe spinal canal stenosis. Effacement of the bilateral lateral recesses, with indentation on the descending L3 nerve roots. Severe left and moderate to severe right neural foraminal narrowing. At L3-L4, there is a diffuse disc bulge with facet and ligamentum flavum hypertrophy. 7 mm inferior migration of the herniated disc material. Indentation on the descending L4 nerve root. Moderate spinal canal stenosis. Severe left and moderate right neural foraminal narrowing. At L4-L5, there is a diffuse disc bulge with large central disc protrusion. Bilateral facet joint fluid. Indentation of the ventral thecal sac. Severe spinal canal stenosis. Effacement of the bilateral lateral recesses. Indentation on the descending L5 nerve roots. Severe right and moderate to severe left neural foraminal narrowing. At L5-S1, there is a diffuse disc bulge with indentation of the ventral thecal sac. Mild spinal canal stenosis. The effacement of the right lateral recess, with indentation on the descending S1 nerve root. Mild left and [id number] right neural foraminal narrowing. IMPRESSION: 1. No acute findings. 2. Multilevel degenerative changes of the spine, as above, overall severe. Findings are similar to prior MRI dated 09/17/2019.
--- NOTE | 2021-04-23 19:44 | PC.NURSE ---
patient in mri at this time. no updates available. waiting on return/
--- NOTE | 2021-04-23 20:29 | PC.NURSE ---
spoke with . advised we will update her as soon as we know something
[2021-04-23 20:48] LABS: C-Reactive Protein 0.4 mg/L (0-4)
[2021-04-23 20:54] LABS: Erythrocyte Sedimentation Rate 71 mm/hr (0-20)
[2021-04-23 21:15] LABS: Procalcitonin 0.054 ng/mL (0.0-2.0)
[2021-04-23 21:42] VITALS: BP 142/75; PULSE 80; RESP 17; TEMP 36.8; O2SAT 98
== END 2021-04-23 21:50 | disposition left against medical advice (07) ==
PROVIDERS: Family Medicine; Emergency Provider Emergency Medicine; PCP Internal Medicine Adolescent Medicine
DX: M48.061 Spinal stenosis, lumbar region without neurogenic claudication (principal); I25.10 Atherosclerotic heart disease of native coronary artery without angina pectoris; E11.65 Type 2 diabetes mellitus with hyperglycemia; I10 Essential (primary) hypertension; E78.5 Hyperlipidemia, unspecified; F17.210 Nicotine dependence, cigarettes, uncomplicated
CPT/HCPCS: 70450; 72141; 72146; 72148; 76376; 80053; 84145; 85025; 85610; 85651; 86140; 93005; 99283

== ENCOUNTER 2021-06-09 19:55 | Emergency (ER) | payer MEDICARE, SELFPAY ==
[2021-06-09 19:55] VITALS: BP 175/94; PULSE 96; RESP 20; TEMP 36.6; O2SAT 96
[2021-06-09 21:04] LABS: UTC Influenza A Antigen Negative (Negative); UTC Influenza B Antigen Negative (Negative)
[2021-06-09 21:13] VITALS: BP 175/94; PULSE 96; RESP 20; TEMP 36.6; O2SAT 96
--- NOTE | 2021-06-09 21:17 | HMH.EDUTC ---
[facility] [place] Clinical Impression: Vomiting and diarrhea Disposition: Home, Self-Care Condition on Discharge: Good Instructions: Diarrhea, Nausea and Vomiting-Adult Additional Instructions: Drink extra fluids with and between meals. If you have difficulty drinking, try very small amounts of water or suck on ice chips. ? Avoid fruit juices, as these do not replace minerals and can actually increase diarrhea. ? Children and adults can use sports drinks to replenish electrolytes. Younger children and infants should use products formulated for children, like oral rehydration solutions. ? Eat food in small amounts and let your stomach recover. ? Get lots of rest. You may feel tired or weak. ? No greasy or fried foods for the next 24-48 hours BRAT diet Bananas Rice Apples and [place] ? Make sure to drink plenty of liquids ? Return if needed ? Straight to ER if any life threatening symptoms ? Zofran as prescribed ? Follow up with family doctor in the next 48-72 hours if no improvement or any worsening of symptoms You were tested for today for COVID19 your test result should be back in the next 24-48 hours, you was give handout on how to log onto [facility] portal to get your results of your COVID test if you cannot log on you may call the [facility] You was given a handout with instructions for Self Quarantine and Self isolation for while you wait on test results and what to do if they are positive If you are positive the Health Dept will be contacting you also Make sure to take your Vitamins Vit. C Vit D and Zinc if you can take them Go straight to the ER for any life threatening symptoms such as confusion, elevated FSBS etc Follow up with Family Doctor for re-evaluation of blood pressure Prescriptions: Fluticasone Propionate [Flonase 50mcg nasal spray 16gm] 1 spr NS DAILY #1 each Transmission Status: Received by [id number] Promethazine HCl [Phenergan 12.5mg tablet] 12.5 mg PO Q6H PRN #6 tab PRN Reason: Vomiting Transmission Status: Received by [id number] Referrals: Aaron Elizabeth MD [Primary Care Provider] - As needed Time of Disposition: 21:42 Medical Decision Making - Ravi Inquiry Pt receiving controlled substance: No Ravi was queried for this patient: No Vital Signs: 06/09/21 19:55 06/09/21 21:13 Temperature 97.8 F 97.8 F Temperature Source Oral Pulse Rate 96 H Pulse Rate [Left Radial] 96 H Respiratory Rate 20 20 Blood Pressure 175/94 H Blood Pressure [Right Arm] 175/94 H Blood Pressure Mean [Right Arm] 121 Blood Pressure Source [Right Arm] Automatic Cuff Blood Pressure Position [Right Arm] Sitting 02 Sat by Pulse Oximetry 96 Oxygen Delivery Method Room Air - Lab Data Lab results reviewed: Yes: I reviewed the patient's lab results. Lab Results 06/09/21 20:49: Influenza Type A Ag Negative, Influenza Type B Ag Negative Orders (Tests/Meds): ORDERS Category Date Time Status Covid-19 Nasal PCR ([facility]) Routine Lab 06/09/21 20:50 Received Medical Decision Narrative: Patient had called the [facility] states that she wanted to have his blood sugar checked and him be admitted to the hospital for anything that we could find to admitt him for because he was not taking his medication correctly Discussed with patient and he refused FSBS states that his blood sugar was high earlier but he took his medication after checking it and feels like it is fine now States that he just wants checked for COVID and flu and get something his nausea and vomiting Discussed with patient that we could transfer him to the ED for extensive work up and he declined States again just wanted to get checked for flu and COVID and get some phenergan for his nausea Patient able to answer questions appropriately and aware of place and time Patient states that he has taken phenergan mulitiple times in the past without complication or reactions discussed medication with pharmacy to check with patient currents meds and
--- NOTE | 2021-06-09 21:54 | PC.NURSE ---
Pt refused to have his glucose tested at this time, states that he came because he was feeling sick to his stomach not his sugar
== END 2021-06-09 21:56 | disposition home or self-care (01) ==
PROVIDERS: Emergency Provider Nurse Practitioner; PCP Internal Medicine Adolescent Medicine
DX: R11.2 Nausea with vomiting, unspecified (principal); E11.65 Type 2 diabetes mellitus with hyperglycemia; I25.10 Atherosclerotic heart disease of native coronary artery without angina pectoris; E78.5 Hyperlipidemia, unspecified; I10 Essential (primary) hypertension; F17.210 Nicotine dependence, cigarettes, uncomplicated; Z79.899 Other long term (current) drug therapy
CPT/HCPCS: 87804; 99202; C9803; G0463; U0003; U0005

== ENCOUNTER → 2021-08-12 11:10 | Outpatient (CLI) | payer MEDICARE, SELFPAY ==
[2021-08-12 11:29] LABS: Basophils # 0.1 K/mm3 (0-0.2); Basophils % 0.9 % (0.1-2.0); Eosinophils # 0.2 K/mm3 (0.0-0.4); Eosinophils % 1.9 % (0.1-12.0); Hematocrit 36.8 % (42.0-52.0); Hemoglobin 12.4 g/dL (14.1-18.0); Lymphocytes # 2.3 K/mm3 (0.7-4.5); Lymphocytes % 24.2 % (10-50); Mean Corpuscular HGB Conc 33.6 g/dL (31.8-35.4); Mean Corpuscular Hemoglobin 29.7 pg (27.0-31.2); Mean Corpuscular Volume 88.3 fl (80-94); Monocytes # 0.7 K/mm3 (0.1-1.0); Monocytes % 7.5 % (1.7-9.3); Neutrophils # 6.4 K/mm3 (1.8-7.8); Neutrophils % 65.6 % (37.0-80.0); Platelet Count 400 K/mm3 (142-424); Red Blood Count 4.16 M/mm3 (4.60-6.20); Red Cell Distribution Width 15.1 % (11.5-17.5); White Blood Count 9.7 K/mm3 (4.8-10.8)
[2021-08-12 11:38] LABS: Hemoglobin A1C 11.7 % (4.0-6.0)
[2021-08-12 11:57] LABS: Alanine Aminotransferase 12 U/L (12-78); Albumin/Globulin Ratio 1.4 (1.1-1.8); Alkaline Phosphatase 117 U/L (38-126); Anion Gap 11.2 mEq/L (5-15); Aspartate Amino Transferase 21 U/L (17-59); Bilirubin,Total 0.4 mg/dl (0.2-1.3); Blood Urea Nitrogen 44 mg/dl (9-20); Carbon Dioxide 28 mmol/L (22.0-30.0); Chloride 97 mmol/L (98-107); Chol/HDL Ratio 6.6 (1-3.5); Cholesterol 263 mg/dl (140-200); Estimated Glomerular Filt Rate 33 ml/min (>60); GFR (African American) 40 ML/MIN (>60); Globulin 2.8 g/dL (1.3-3.2); Glucose 361 mg/dl (74-100); HDL Cholesterol 40 mg/dl (40-60); Potassium 5.2 mmoL/L (3.5-5.1); Sodium 131 mmol/L (136-145); Total Protein,Serum 6.8 g/dl (6.3-8.2); Triglycerides 285 mg/dl (30-150); VLDL Cholesterol 57 mg/dL (0-40)
[2021-08-12 12:07] LABS: Direct LDL Cholesterol 148.79 mg/dL (100-129)
== END ==
PROVIDERS: Visit Provider Internal Medicine Adolescent Medicine
DX: E11.9 Type 2 diabetes mellitus without complications (principal); E03.9 Hypothyroidism, unspecified; Z79.4 Long term (current) use of insulin
CPT/HCPCS: 36415; 80053; 80061; 83036; 84443; 85025

== ENCOUNTER 2022-02-04 00:57 | Emergency (ER) | payer MEDICARE, SELFPAY ==
[2022-02-04 00:46] VITALS: BP 113/77; PULSE 109; RESP 20; TEMP 36.9; O2SAT 94; BMI 29.2
--- NOTE | 2022-02-04 00:49 | PC.NURSE ---
Notified rad of stroke protocol
--- NOTE | 2022-02-04 00:53 | ECG_ITS ---
APPROVED REPORT Exam: Resting ECG HR:110 bpm ECG Measurements Heart Rate 110 AXES WV 139 P 61 QRSd 150 QRS -62 QT 356 T 69 QTc 421 Conclusion SINUS TACHYCARDIA RIGHT BUNDLE BRANCH BLOCK [120+ ms QRS DURATION, UPRIGHT V1, 40+ ms S IN I/aVL/V4/V5/V6] LEFT ANTERIOR FASCICULAR BLOCK [QRS AXIS <= -45, QR IN I, RS IN II] LEFT VENTRICULAR HYPERTROPHY AND ST-T CHANGE [VOLTAGE CRITERIA PLUS ST/T ABNORMALITY] ABNORMAL ECG UNCONFIRMED REPORT Electronically signed by : Aaron Elizabeth MD 02/04/2022 21:17:59
[2022-02-04 00:57] VITALS: BMI 26.6
--- NOTE | 2022-02-04 00:57 | CT_ITS ---
PROCEDURE INFORMATION: Exam: CT Head Without Contrast Exam date and time: 02/04/2022 1:00 AM Age: 56 years old Clinical indication: Stroke-like symptoms; Altered mental status/memory loss; Additional info: AMS TECHNIQUE: Imaging protocol: Computed tomography of the head without contrast. Radiation optimization: All CT scans at this facility use at least one of these dose optimization techniques: automated exposure control; mA and/or kV adjustment per patient size (includes targeted exams where dose is matched to clinical indication); or iterative reconstruction. Other technique: STROKE PROTOCOL was implemented. COMPARISON: CT HEAD/BRAIN WO CON 04/23/2021 3:23 PM FINDINGS: Brain: There is an area of hypodensity involving the medial left frontal lobe. When correlated with coronal and sagittal imaging, this is likely contributed by artifact, although infarct is also considered. Artifact limits evaluation of the bilateral frontal lobes and [place]. Aside from the areas of artifact, there is no definitive acute intracranial hemorrhage. There is minimal nonspecific periventricular white matter hypodensity. Small vessel ischemic disease is suggested. The acuity of the white matter disease is indeterminate. There is no midline shift. There is mild prominence of sulci, compatible with atrophy. Cerebral ventricles: No ventriculomegaly. Paranasal sinuses: Mild mucosal thickening of scattered ethmoid air cells. Mild mucosal thickening of the bilateral maxillary sinuses. Mastoid air cells: No mastoid effusion. Bones/joints: The calvarium demonstrates no evidence for a depressed fracture. Soft tissues: Unremarkable. Vasculature: Intracranial atherosclerosis visualized. There is asymmetric hyperdensity of the right middle cerebral artery. Thrombus is considered. IMPRESSION: 1. There is an area of hypodensity involving the medial left frontal lobe. When correlated with coronal and sagittal imaging, this is likely contributed by artifact, although infarct is also considered. Correlation with MRI is recommended, as clinically indicated. 2. There is asymmetric hyperdensity of the right middle cerebral artery. Correlation with CTA is recommended to exclude thrombus. 3. There is minimal nonspecific periventricular white matter hypodensity. Small vessel ischemic disease is suggested. 4. Mild atrophy. 5. Additional findings described above. ASSESSMENT: ASPECTS ([facility] Stroke Program Early CT Score) is 10.
--- NOTE | 2022-02-04 00:57 | XR_ITS ---
PROCEDURE INFORMATION: Exam: XR Chest Exam date and time: 02/04/2022 1:12 AM Age: 56 years old Clinical indication: Other: AMS TECHNIQUE: Imaging protocol: XR of the chest. Views: 1 view. COMPARISON: CR XR CHEST PORTABLE 08/12/2019 3:19 PM FINDINGS: Lungs: There is mild interstitial/airspace disease at the lung bases. This can be contributed by atelectatic change, although pneumonia cannot be excluded. Pleural spaces: No pleural effusion. No pneumothorax. Heart/Mediastinum: No cardiomegaly. Bones/joints: Osteopenia. Bilateral acromioclavicular arthropathy. IMPRESSION: There is mild interstitial/airspace disease at the lung bases. This can be contributed by atelectatic change, although pneumonia cannot be excluded. Clinical correlation and follow-up radiographs are recommended.
--- NOTE | 2022-02-04 01:00 | PC.NURSE ---
pt going to rad
--- NOTE | 2022-02-04 01:10 | PC.NURSE ---
PT returned from rad
[2022-02-04 01:35] VITALS: BP 119/68; PULSE 97; RESP 16; O2SAT 98
[2022-02-04 01:48] LABS: Basophils # 0.1 K/mm3 (0-0.2); Basophils % 0.6 % (0.1-2.0); Eosinophils # 0.1 K/mm3 (0.0-0.4); Eosinophils % 0.4 % (0.1-12.0); Hematocrit 38.5 % (42.0-52.0); Hemoglobin 12.1 g/dL (14.1-18.0); Lymphocytes # 3.6 K/mm3 (0.7-4.5); Lymphocytes % 16.3 % (10-50); Mean Corpuscular HGB Conc 31.4 g/dL (31.8-35.4); Mean Corpuscular Hemoglobin 29.9 pg (27.0-31.2); Mean Corpuscular Volume 94.9 fl (80-94); Mean Platelet Volume 8.8 fl (7.4-10.4); Monocytes # 1.8 K/mm3 (0.1-1.0); Neutrophils # 16.7 K/mm3 (1.8-7.8); Neutrophils % 74.8 % (37.0-80.0); Platelet Count 349 K/mm3 (142-424); Red Blood Count 4.06 M/mm3 (4.60-6.20); Red Cell Distribution Width 14.9 % (11.5-17.5); White Blood Count 22.3 K/mm3 (4.8-10.8)
[2022-02-04 01:49] LABS: Alanine Aminotransferase 24 U/L (12-78); Albumin Level 4.5 g/dl (3.5-5.0); Albumin/Globulin Ratio 1.3 (1.1-1.8); Alkaline Phosphatase 140 U/L (38-126); Anion Gap 21.5 mEq/L (5-15); Aspartate Amino Transferase 53 U/L (17-59); Bilirubin,Total 0.3 mg/dl (0.2-1.3); Blood Urea Nitrogen 49 mg/dl (9-20); Carbon Dioxide 21 mmol/L (22.0-30.0); Chloride 103 mmol/L (98-107); Creatinine Clearance Estimated 21 mL/min (50-200); Estimated Glomerular Filt Rate 14 ml/min (>60); GFR (African American) 17 ML/MIN (>60); Globulin 3.4 g/dL (1.3-3.2); Glucose 101 mg/dl (74-100); Potassium 5.5 mmoL/L (3.5-5.1); Sodium 140 mmol/L (136-145); Total Protein,Serum 7.9 g/dl (6.3-8.2)
--- NOTE | 2022-02-04 01:49 | HMH.EDAMS ---
ED Disposition Clinical Impression: Delirium due to general medical condition, EMETERIO (acute kidney injury), SIRS (systemic inflammatory response syndrome), RBBB (right bundle branch block with left anterior fascicular block), Tobacco dependence syndrome CAP (community acquired pneumonia) Qualifiers: Laterality: unspecified laterality Qualified Code(s): J18.9 - Pneumonia, unspecified organism Disposition: Left Against Medical Advice Condition on Discharge: Serious Instructions: DI for Altered Mental Status Prescriptions: cephALEXin [cephALEXin 500mg capsule*] 500 mg PO TID #30 cap [facility] Azithromycin [Zithromax 250mg tab] 250 mg PO DIRECTED #6 tab Transmission Status: Pending to [facility] Referrals: Aaron Elizabeth MD [Primary Care Provider] - - Critical Care Critical Care Time: No Attestation: On 02/04/22, the high probability of a clinically significant, sudden or life threatening deterioration of the following system(s) required my full and direct attention, intervention and personal management. The time I documented below is in addition to time spent performing reported procedures but includes the following listed in this critical care notation. Medical Decision Making - Medical Records Medical records reviewed: Yes: I reviewed the patient's medical records. - Ravi Inquiry Pt receiving controlled substance: No Vital Signs: 02/04/22 00:46 02/04/22 01:35 02/04/22 02:42 Temperature 98.5 F Temperature Source Oral Pulse Rate 97 H 95 H Pulse Rate [Left] 109 H Respiratory Rate 20 16 16 Blood Pressure 119/68 125/66 Blood Pressure [Right Arm] 113/77 Blood Pressure Mean [Right Arm] 89 02 Sat by Pulse Oximetry 94 L 98 98 Oxygen Delivery Method Room Air 02/04/22 03:45 02/04/22 03:59 Temperature Temperature Source Pulse Rate 90 98 H Pulse Rate [Left] Respiratory Rate 16 16 Blood Pressure 126/67 142/77 H Blood Pressure [Right Arm] Blood Pressure Mean [Right Arm] 02 Sat by Pulse Oximetry 98 98 Oxygen Delivery Method Room Air - Lab Data Lab results reviewed: Yes: I reviewed the patient's lab results. Lab Results 02/04/22 01:27: WBC 22.3 H*, RBC 4.06 L, Hgb 12.1 L, Hct 38.5 L, MCV 94.9 H, MCH 29.9, MCHC 31.4 L, RDW 14.9, Plt Count 349, MPV 8.8, Neut % (Auto) 74.8, Lymph % (Auto) 16.3, [place] % (Auto) 8.0, Eos % (Auto) 0.4, Baso % (Auto) 0.6, Neut # (Auto) 16.7 H, Lymph # (Auto) 3.6, [place] # (Auto) 1.8 H, Eos # (Auto) 0.1, Baso # (Auto) 0.1, Total Counted 100, Neutrophils % (Manual) 85 H, Band Neutrophils % 1.0, Lymphocytes % (Manual) 9 L, Monocytes % (Manual) 5, Platelet Estimate Normal, Leigha Cells 1+ 02/04/22 01:27: Sodium 140, Potassium 5.5 H, Chloride 103, Carbon Dioxide 21 L, Anion Gap 21.5 H, BUN 49 H, Creatinine 4.30 H, Estimated Creat Clear 21, Estimated GFR 14 L*, Est GFR ( Amer) 17 L*, Glucose 101 H, Calcium 9.0, Total Bilirubin 0.3, AST 53, ALT 24, Alkaline Phosphatase 140 H, Troponin I 0.02, Total Protein 7.9, Albumin 4.5, Globulin 3.4 H, Albumin/Globulin Ratio 1.3 02/04/22 01:27: Lactate 1.0 02/04/22 01:30: SARS-CoV-2 (PCR) Not detected, Influenza A Untype (PCR) Not detected, Influenza Type B (PCR) Not detected 02/04/22 03:19: Urine Color Yellow, Urine Appearance Clear, Urine pH 5.5, Ur Specific [place] >= 1.030, Urine Protein Trace, Urine Glucose (UA) 3+, Urine Ketones Trace, Urine Blood Negative, Urine Nitrate Negative, Urine Bilirubin Negative, Urine Urobilinogen 0.2, Ur Leukocyte Esterase Negative, Urine RBC None, Urine WBC Occasional, Ur Squamous Epith Cells Occasional, Urine Bacteria None 02/04/22 03:19: Urine Opiates Screen Positive H, Urine Methadone Screen Negative, Ur Barbituates Screen Negative, Ur Phencyclidine Scrn Negative, Ur Amphetamines Screen Negative, U Benzodiazepines Scrn Negative, Urine Cocaine Screen Negative, U Marijuana (THC) Screen Negative 02/04/22 03:46: Troponin I 0.01 Result diagr
[2022-02-04 01:52] LABS: MANUAL DIFFERENTIAL MANUAL DIFFERENTIAL (MANUAL DIFF)
--- NOTE | 2022-02-04 01:54 | CT_ITS ---
PROCEDURE INFORMATION: Exam: CT Lumbar Spine Without Contrast Exam date and time: 02/04/2022 1:58 AM Age: 56 years old Clinical indication: Low back pain; Patient HX: Left leg weakness TECHNIQUE: Imaging protocol: Computed tomography images of the lumbar spine without contrast. Radiation optimization: All CT scans at this facility use at least one of these dose optimization techniques: automated exposure control; mA and/or kV adjustment per patient size (includes targeted exams where dose is matched to clinical indication); or iterative reconstruction. COMPARISON: 1. MR LUMBAR SPINE WO CON 04/23/2021 6:[address] ABD PELVIS W/ CONTRAST 06/13/2017 3:00 PM FINDINGS: Bones/joints: Grade 1 anterolisthesis of L4 on L5 and L5 on S1. Osteopenia. Abnormal density and morphology involving the left 12th rib. This is consistent with an old fracture or nonspecific sclerotic lesion. No visualized acute fracture involving the lumbar spine. Mild dextroscoliosis of the lumbar spine. Within the right iliac bone, adjacent to the sacroiliac joint, there is a 9 mm hypodense the cyst or lytic lesion. This is stable compared to the prior CT, and therefore likely benign. Discs/Spinal canal/Neural foramina: Degenerative changes are identified diffusely within the lumbar and visualized lower thoracic spine. Disc bulge/osteophyte complexes are seen. Moderate spinal canal stenosis is identified at L2-L3. There is a broad-based disc bulge with protrusion at L4-L5, with severe spinal canal stenosis. Narrowing of both lateral recesses visualized at L4-L5. No significant spinal canal stenosis at the remaining lumbar levels. Varying degrees of neural foraminal narrowing identified diffusely within the lumbar spine. Severe right neural foraminal narrowing is seen at L4-L5 with moderate right neural foraminal narrowing from L1-L2 through L3-L4. Severe left neural foraminal narrowing seen at L3-L4 and L4-L5, with moderate left neural foraminal narrowing at L1-L2 and L2-L3. Mild bilateral neural foraminal narrowing at L5-S1. Soft tissues: No significant paraspinal swelling. Other findings: For discussion of findings involving the abdomen and pelvis, refer to the abdomen/pelvis CT report from the same day. IMPRESSION: 1. Grade 1 anterolisthesis of L4 on L5 and L5 on S1. 2. No visualized acute fracture involving the lumbar spine. 3. Mild dextroscoliosis of the lumbar spine. 4. Degenerative changes are identified diffusely within the lumbar and visualized lower thoracic spine. 5. Moderate spinal canal stenosis is identified at L2-L3. There is a broad-based disc bulge with protrusion at L4-L5, with severe spinal canal stenosis. Narrowing of both lateral recesses visualized at L4-L5. A follow-up MRI lumbar spine is recommended, as clinically indicated. 6. Varying degrees of neural foraminal narrowing identified diffusely within the lumbar spine. 7. Abnormal density and morphology involving the left 12th rib. This is consistent with an old fracture or nonspecific sclerotic lesion. 8. Additional findings described above.
--- NOTE | 2022-02-04 01:54 | CT_ITS ---
PROCEDURE INFORMATION: Exam: CT Abdomen And Pelvis Without Contrast Exam date and time: 02/04/2022 1:56 AM Age: 56 years old Clinical indication: Abdominal pain TECHNIQUE: Imaging protocol: Computed tomography of the abdomen and pelvis without contrast. Radiation optimization: All CT scans at this facility use at least one of these dose optimization techniques: automated exposure control; mA and/or kV adjustment per patient size (includes targeted exams where dose is matched to clinical indication); or iterative reconstruction. COMPARISON: ABDPELW CT ABD PELVIS W/ CONTRAST 06/13/2017 3:00 PM FINDINGS: Lungs: Patchy interstitial and airspace disease is visualized within the left lower lobe and right middle lobe. The this is new compared to the prior study. Atypical pneumonia is within the differential. There is a small calcified granuloma again visualized within the right middle lobe. Within the right middle lobe on series 3, image 9, there is a 7 mm nodule. Heart: Coronary artery calcification visualized. Liver: Unremarkable as visualized on these noncontrast images. No mass. Gallbladder and bile ducts: The gallbladder is distended. Distension of the cystic duct is also visualized. This has progressed. No calcified gallstones are visualized. Pancreas: Atrophy of the pancreas is visualized. Small calcifications are noted within the pancreas, consistent with the previously described chronic pancreatitis. Spleen: Small calcifications are seen within the spleen, suggestive of granulomatous disease. Adrenal glands: No mass. Kidneys and ureters: Tiny nonobstructing renal calculi are visualized bilaterally. Nonspecific perinephric stranding bilaterally. There is no hydronephrosis bilaterally. Stomach and bowel: Moderate fecal material is visualized within the colon.Evaluation of bowel is limited by the absence of oral contrast. No visualized small bowel obstruction. Appendix: No evidence of appendicitis. Intraperitoneal space: There is a stable herniation of fat in the right inguinal region. Vasculature: There is atherosclerotic calcification of the abdominal aorta and iliac arteries. Lymph nodes: No enlarged lymph nodes. Urinary bladder: Nonspecific wall thickening of the bladder. Reproductive: The prostate closes slight elevation of the bladder floor. Bones/joints: Mild dextroscoliosis of the lumbar spine. Degenerative changes are identified involving the lumbar and lower thoracic spine. Refer to the CT lumbar spine report from the same day for further discussion. Mild sclerotic changes visualized involving the bilateral femoral heads, right side greater than left. This can be secondary to arthropathy although osteonecrosis is also considered. Abnormal density and morphology involving the left 12th rib. This is consistent with an old fracture or nonspecific sclerotic lesion. Soft tissues: Unremarkable. Other findings: Paraumbilical stranding is visualized. This is likely postoperative or inflammatory. IMPRESSION: 1. Patchy interstitial and airspace disease is visualized within the left lower lobe and right middle lobe. This is new compared to the prior study. Atypical pneumonia is within the differential. Clinical correlation recommended. 2. Within the right middle lobe, there is a 7 mm nodule. For patients at low risk (minimal or absent history of smoking and of other known risk factors), recommend CT Chest at 3-6 months, then consider CT Chest at 18-24 months. For patients at high risk (history of smoking or of other known risk factors), recommend CT Chest at 3-6 months, then CT Chest at 18-24 months. (Reference: Jonnathan)
--- NOTE | 2022-02-04 01:57 | PC.NURSE ---
PT going to rad
[2022-02-04 02:01] LABS: Troponin I 0.02 ng/ml (0.00-0.034)
[2022-02-04 02:02] LABS: Coronavirus 19, PCR Not Detected (NotDetected); Influenza A, PCR Not Detected (NotDetected); Influenza B, PCR Not Detected (NotDetected)
--- NOTE | 2022-02-04 02:10 | PC.NURSE ---
pt returned from rad. PT A&O times three at this time ableto tell me his name, , where he is and the year
--- NOTE | 2022-02-04 02:23 | PC.NURSE ---
spoke with on phone and updated her on POC
[2022-02-04 02:42] VITALS: BP 125/66; PULSE 95; RESP 16; O2SAT 98
--- NOTE | 2022-02-04 02:44 | PC.NURSE ---
speaking with TOMAS
--- NOTE | 2022-02-04 02:54 | PC.NURSE ---
Advised pt we needed a urine, attempting to use urinal at this time. PT had refused for me to straight cath him at this time.
[2022-02-04 03:27] LABS: Microscopic, Urine URINE MICROSCOPIC (MICROSCOPIC)
--- NOTE | 2022-02-04 03:31 | PC.NURSE ---
cath urine obtained [id number]
[2022-02-04 03:45] VITALS: BP 126/67; PULSE 90; RESP 16; O2SAT 98
[2022-02-04 03:46] LABS: Lymphocytes % 9 % (10-50); Monocytes % 5 % (2-9); Neutrophils % 85 % (42-76); Platelet Estimate Normal; Total Cells Counted 100
[2022-02-04 03:47] LABS: Burr Cells 1+
[2022-02-04 03:53] LABS: Appearance,Urine CLEAR (Clear); Blood, Urine Negative (Negative); Color,Urine YELLOW (Yellow); Glucose,Urine (UA) 3+ (Negative); Ketones,Urine TRACE (Negative); Leukocyte Esterase,Urine Negative (Negative); Nitrate,Urine Negative (Negative); PH,Urine 5.5 (5.0-8.5); Protein,Urine TRACE (Negative); Specific Gravity, Urine >= 1.030 (1.005-1.030); Urobilinogen,Urine 0.2 EU/dl (0.2)
[2022-02-04 03:55] LABS: Bilirubin,Urine Negative (Negative)
[2022-02-04 03:59] VITALS: BP 142/77; PULSE 98; RESP 16; O2SAT 98
[2022-02-04 04:04] LABS: Amphetamine/Metha Screen,Urine Negative ng/ml (<1000); Barbiturates Screen,Urine Negative ng/ml (<200)
[2022-02-04 04:05] LABS: Benzodiazepines Screen,Urine Negative ng/ml (<200); Cannabinoid Screen,Urine Negative ng/ml (<50)
[2022-02-04 04:06] LABS: Cocaine Screen,Urine Negative ng/ml (<300)
[2022-02-04 04:07] LABS: Methadone Screen,Urine Negative ng/ml (<300); Opiate Screen,Urine Positive ng/ml (<300)
[2022-02-04 04:08] LABS: Phencyclidine Screen,Urine Negative ng/ml (<25)
[2022-02-04 04:20] LABS: Troponin I 0.01 ng/ml (0.00-0.034)
[2022-02-04 04:33] LABS: Squamous Epithelial Cell,Urine Occasional #/hpf (0-5); WBC,Urine Occasional #/hpf (0-3)
--- NOTE | 2022-02-04 05:32 | PC.NURSE ---
pt was advised to be admitted to the hospital for EMETERIO and pneumonia and refused. November and I went in the room and explained the AMA paper work and checked his mental status. pt is alert and oriented at this time. pt states that he understands the risks and will not stay he wants to go to the house.pt signed AMA paper, iv removed and left the ED @[id number]
[2022-02-04 05:37] VITALS: BP 142/77; PULSE 78; RESP 18; TEMP 37.2; O2SAT 97
[2022-02-04 06:07] LABS: T4 (Thyroxine) 3.9 ug/dl (5.53-11.0)
== END 2022-02-04 05:37 | disposition left against medical advice (07) ==
PROVIDERS: Emergency Provider Emergency Medicine; PCP Internal Medicine Adolescent Medicine
DX: J18.9 Pneumonia, unspecified organism (principal); R65.10 Systemic inflammatory response syndrome (SIRS) of non-infectious origin without acute organ dysfunction; R41.82 Altered mental status, unspecified; R00.0 Tachycardia, unspecified; Z20.822 Contact with and (suspected) exposure to COVID-19; I10 Essential (primary) hypertension; N17.9 Acute kidney failure, unspecified; I25.10 Atherosclerotic heart disease of native coronary artery without angina pectoris; I45.2 Bifascicular block; E78.5 Hyperlipidemia, unspecified; E03.9 Hypothyroidism, unspecified; E11.9 Type 2 diabetes mellitus without complications; M19.90 Unspecified osteoarthritis, unspecified site; F05 Delirium due to known physiological condition; F17.210 Nicotine dependence, cigarettes, uncomplicated; Z79.1 Long term (current) use of non-steroidal anti-inflammatories (NSAID); Z79.4 Long term (current) use of insulin; Z79.51 Long term (current) use of inhaled steroids; Z79.82 Long term (current) use of aspirin; Z79.899 Other long term (current) drug therapy; Z95.5 Presence of coronary angioplasty implant and graft; Z82.49 Family history of ischemic heart disease and other diseases of the circulatory system; Z83.3 Family history of diabetes mellitus; Z83.438 Family history of other disorder of lipoprotein metabolism and other lipidemia; Z83.49 Family history of other endocrine, nutritional and metabolic diseases
CPT/HCPCS: 70450; 71045; 72131; 74176; 80053; 80305; 81001; 83605; 84436; 84443; 84484; 85007; 85025; 87040; 87077; 87186; 93005; 96374; 96375; 99285; C9803; J0456; J0696; U0003; U0005